=== PATIENT | male | born 1960 | race Caucasian/White ===

== ENCOUNTER 2017-12-26 12:49 | Outpatient (CLI) | payer BC, SELFPAY ==
[2017-12-26 13:09] LABS: Abs Immature Grans 0.03 k/cumm (0.0-0.09); Absolute Basophil Count 0.01 k/cumm (0.0-0.2); Absolute Eosinophil Count 0.53 k/cumm (0.0-0.7); Absolute Lymphocyte Count 0.26 k/cumm (1.2-3.4); Absolute Monocyte Count 0.27 k/cumm (0.11-0.7); Absolute Neutrophil Count 1.59 k/cumm (1.2-6.7); Basophils % 0.4; Eosinophils % 19.7; HCT 41.7 % (40.0-50.0); HGB 14.6 g/dL (13.5-17.5); Immature Grans % 1.1; Lymphocytes % 9.7; Mean Corpuscular Hemoglobin 30.9 pg (27.0-33.0); Mean Corpuscular Volume 88.3 fL (80-95); Neutrophils % 59.1; RBC 4.72 m/cumm (4.50-6.00); RBC Distribution Width 12.4 % (11.8-14.1); White Blood Cell Count 2.69 k/cumm (4.4-10.8)
[2017-12-26 13:36] LABS: ALT 30 U/L (12-78); AST 15 U/L (15-37); Albumin 2.7 g/dL (3.4-5.0); Alkaline Phosphatase 220 U/L (46-116); Anion Gap 9.2 mmol/L (3-11); BUN 27 mg/dL (7-18); Bilirubin, Total 0.5 mg/dL (0.2-1.0); CO2 22.8 mmol/L (21.0-32.0); CREATININE 1.18 mg/dL (0.70-1.30); Calcium 8.3 mg/dL (8.5-10.1); Chloride 94 mmol/L (98-107); Glucose 117 mg/dL (70-100); Sodium 126 mmol/L (136-145); Total Protein 6.8 g/dL (6.4-8.2)
[2017-12-26 14:17] LABS: Platelet Count 35 x1000/uL (130-400)
[2017-12-26 14:19] LABS: Diff Comment Agrees w/ Instrument; RBC Morphology Normal
== END 2017-12-26 13:09 ==
PROVIDERS: PCP Physician Assistant; Visit Provider Nurse Practitioner Adult Health
DX: K76.89 Other specified diseases of liver (principal); K59.00 Constipation, unspecified; R91.8 Other nonspecific abnormal finding of lung field; C34.11 Malignant neoplasm of upper lobe, right bronchus or lung
CPT/HCPCS: 36415; 80053; 85025

== ENCOUNTER 2018-01-10 09:13 | Outpatient (REF) | payer BC, SELFPAY ==
[2018-01-10 09:33] LABS: Abs Immature Grans 0.05 k/cumm (0.0-0.09); Absolute Basophil Count 0.02 k/cumm (0.0-0.2); Absolute Lymphocyte Count 0.43 k/cumm (1.2-3.4); Absolute Monocyte Count 0.81 k/cumm (0.11-0.7); Absolute Neutrophil Count 3.48 k/cumm (1.2-6.7); Basophils % 0.4; HCT 34.3 % (40.0-50.0); HGB 11.4 g/dL (13.5-17.5); Lymphocytes % 8.8; Mean Corp. HGB Concentration 33.2 g/dL (32.0-36.0); Mean Corpuscular Hemoglobin 30.9 pg (27.0-33.0); Mean Platelet Volume 9.6 fL (8.0-11.0); Monocytes % 16.6; Neutrophils % 71.2; Platelet Count 141 x1000/uL (130-400); RBC 3.69 m/cumm (4.50-6.00); RBC Distribution Width 14.4 % (11.8-14.1); White Blood Cell Count 4.89 k/cumm (4.4-10.8)
== END 2018-01-10 09:33 ==
LOC: LBN 09:13
PROVIDERS: PCP Physician Assistant; Visit Provider Nurse Practitioner Adult Health
DX: C34.11 Malignant neoplasm of upper lobe, right bronchus or lung (principal)
CPT/HCPCS: 85025

== ENCOUNTER 2018-01-22 10:25 | Emergency (ER) | payer BC, SELFPAY ==
--- NOTE | 2018-01-22 10:40 | W.ED.GENAD ---
Discharge Plan Disposition Patient Disposition: HOME Condition: Stable Discharge Details Chief Complaint: Cellulitis Clinical Impression: Rash, Thrombocytopenia Primary Care Provider: Serge Walker ED Provider: Lashay Savage Discharge Instructions Instructions: Acute Rash (ED), Thrombocytopenia (ED) Additional Instructions: Please return immediately to the emergency department if you develop any new or worsening symptoms or if you become otherwise concerned. It is extremely important that you make an appointment to be seen by your primary care doctor or your oncologist within the next week in follow-up this visit. It is also extremely important that you arrive at the infusion center here at [facility] tomorrow between 1 and 2 PM for a platelet transfusion. Referrals: Serge Walker [Primary Care Provider] - Discharge Data Discharge Date/Time-TO BE ENTERED AT DEPARTURE: 01/22/18 14:50 Medical Decision Making Dmitry Mills is a 57 y/o man with history of stage IV lung cancer with recent chemotherapy presenting to the emergency department with known rash for the past week, unchanged and thrombus cytopenia at outside hospital last night, here for recheck of some cytopenia. On exam patient is nontoxic appearing and comfortable. He has a normal cardiopulmonary exam. There is confluent purpura of bilateral anterior tibias and +1 nonpitting edema of bilateral lower legs without posterior calf tenderness palpation. DP pulses are intact and symmetric. There is no warmth. Concern for possible DVTs though unlikely, worsening thrombocytopenia. Exam/history not consistent with active bleeding, sepsis, TTP, acute emergent vascular process. Doubt active infection. Plan to hold antibiotics at this time pending blood cultures taken in [place] last night per [facility] plan and appearance of rash, plan to obtain screening labs and bilateral lower extremity ultrasounds. DVT study is negative. platelets 16. I did discuss the patient with his oncologist at [facility], Dr. Guerrier, who agreed with prior assessment by [facility] at that patient should not be treated further with antibiotics and that we should await blood cultures that were taken last night. He did recommend the patient be transfused 1 pack of platelets despite no active bleeding given that he may need procedures in the near future or could continue to drop. He reports that he will see patient in follow-up. He does not believe that from cytopenia is ITP or TTP at this time, and more likely chemotherapy related. Discussed transfusion of platelets with blood bank, who reported that platelets would not be available until 6 or 7:00 tonight. I discussed this with the patient, who stated that he would not stay in the emergency department for length of time. I called the transfusion center, and they are able to see the patient at 1 PM tomorrow to transfuse the platelets. At this time I do not believe that there is significant benefit to obtaining platelets later tonight as opposed to tomorrow afternoon, particularly given that patient is refusing to stay in the emergency department until later tonight. Lengthy discussion with patient regarding return to emergency department precautions and importance of outpatient follow-up with his oncologist and at the transfusion center tomorrow for platelets. He is amenable to the plan. Medical Records Medical records reviewed: Yes I reviewed the patient's medical records. Imaging Data Radiologic Study: Radiologist's impression: US DVT studies neg per radiology by phone Lab Data Lab results reviewed: Yes I reviewed the patient's lab results. HPI General Mode of arrival: ambulatory. Date/Time Provider Initiated Documentation: 01/22/18 10:40. Limitations to Documentation: no limitations. Information obtained by: patient and family. HPI Narrative: Dmitry Mills is a 57 y/o man with stage IV lung cancer with last chemo therapy January 06, 2018 presenting to the emergency department for lab check. Patient reports that he completed a one-week course of Keflex yesterday for rash to bilateral lower legs that developed 1 week ago. Patient reports that he went to [facility] last night for continued rash. Per patient they gave him 2 g of ceftriaxone and p.o. Bactrim. He was found to have platelets of 14, and there is plan for admission for lab recheck in a.m. and possible platelet transfusion. Patient reports to me that he left the emergency department in [facility] because he is very uncomfortable in hospital beds due to chronic back pain is unchanged from baseline. Patient reports that he went to [facility] this morning, and they sent him to emergency department for lab check for thrombocytopenia. Patient denies symptoms at this time other than his ongoing rash. He has no pain, no shortness of breath, no fever, no nausea/vomiting/diarrhea, no cough, no other rash, no lightheadedness, no weakness, no numbness/tingling. Patient does report decreased appetite since beginning chemotherapy which is unchanged for him. He reports that he has been able to eat and drink a small amount of food every day. He denies any bleeding and denies melena/hematochezia. Review of Systems Review of Systems Constitutional: denies fevers, reports fatigue, decreased appetite Eyes: denies eye pain ENT: denies facial pain, dental pain, sore throat Cardiovascular: denies chest pain, edema Respiratory: denies SOB, cough GI: denies abdominal pain, vomiting, diarrhea : denies flank pain MSK: denies back pain, neck pain, arthralgias, myalgias Skin: reports rash Neuro: denies headaches, lightheadedness, weakness [facility] Social History Smoking/Tobacco Use Status: Current every day Exam Narrative Exam Narrative: Constitutional: well and [id number], pleasant, conversing normally HENT: head atraumatic, normocephalic normal inspection, mucous membranes moist Eyes: conjunctiva normal, sclera normal, pupils 3mm b/l Neck: no stridor, normal ROM, trachea midline Chest: normal inspection, port site without edema or overlying skin changes Resp: normal work of breathing, LCTAB Cardio: normal rate, normal rhythm, no murmur appreciated GI: abdomen soft, non-tender, non-distended Back: normal inspection, no rash Skin: warm, dry, normal color, no rash other than as below Neuro: alert, not altered, grossly non-focal, normal tone Ext: +1 non-pitting edema b/l lower legs, anterior tibias with non-blanching rash c/w purpura, no posterior calf TTP Psych: normal mood, normal affect, normal behavior
[2018-01-22 10:41] VITALS: BP 111/69; PULSE 102; RESP 18; TEMP 37.3; O2SAT 98
--- NOTE | 2018-01-22 11:13 | DI.US_ITS ---
SYMPTOM/DIAGNOSIS: BILAT LOWER EXTREMITY RASH AND EDEMA BILATERAL LOWER EXTREMITY VENOUS ULTRASOUND: There is no evidence of right or left leg DVT. Note is made of a 2.7 by 2.1 by 0.7 cm. right groin lymph node which appears anatomically normal. Note is also made of multiple lymph nodes in the left groin, the largest measuring 2.3 by 2.1 by 0.7 cm. These nodes also appearing acoustically normal.
[2018-01-22 11:37] LABS: Abs Immature Grans 0.01 k/cumm (0.0-0.09); Absolute Basophil Count 0.01 k/cumm (0.0-0.2); Absolute Eosinophil Count 0.08 k/cumm (0.0-0.7); Absolute Monocyte Count 0.36 k/cumm (0.11-0.7); Absolute Neutrophil Count 3.32 k/cumm (1.2-6.7); Basophils % 0.2; Eosinophils % 1.9; HCT 30.6 % (40.0-50.0); HGB 10.3 g/dL (13.5-17.5); Immature Grans % 0.2; Lymphocytes % 9.6; Mean Corp. HGB Concentration 33.7 g/dL (32.0-36.0); Mean Corpuscular Hemoglobin 30.9 pg (27.0-33.0); Mean Corpuscular Volume 91.9 fL (80-95); Mean Platelet Volume 12.3 fL (8.0-11.0); Monocytes % 8.6; Neutrophils % 79.5; RBC 3.33 m/cumm (4.50-6.00); RBC Distribution Width 14.1 % (11.8-14.1); White Blood Cell Count 4.18 k/cumm (4.4-10.8)
[2018-01-22 11:49] LABS: ALT 31 U/L (12-78); AST 20 U/L (15-37); Albumin 2.4 g/dL (3.4-5.0); Alkaline Phosphatase 196 U/L (46-116); Anion Gap 9.7 mmol/L (3-11); BUN 6 mg/dL (7-18); Bilirubin, Total 0.4 mg/dL (0.2-1.0); CO2 26.3 mmol/L (21.0-32.0); CREATININE 0.93 mg/dL (0.70-1.30); Calcium 8.1 mg/dL (8.5-10.1); Chloride 98 mmol/L (98-107); Glucose 98 mg/dL (70-100); Potassium 3.8 mmol/L (3.5-5.1); Sodium 134 mmol/L (136-145); Total Protein 7.1 g/dL (6.4-8.2)
[2018-01-22 11:50] LABS: Diff Comment PLT Morph Reviewed; Platelet Count 16 x1000/uL (130-400); RBC Morphology Normal
[2018-01-22 14:48] VITALS: BP 114/67; PULSE 92; RESP 20; TEMP 36.5; O2SAT 97
--- NOTE | 2018-01-22 16:29 | ED.GENADUL_ITS ---
Discharge Plan Disposition Patient Disposition: HOME Condition: Stable Discharge Details Chief Complaint: Cellulitis Clinical Impression: Rash, Thrombocytopenia Primary Care Provider: Serge Walker ED Provider: Lashay Savage Discharge Instructions Instructions: Acute Rash (ED), Thrombocytopenia (ED) Additional Instructions: Please return immediately to the emergency department if you develop any new or worsening symptoms or if you become otherwise concerned. It is extremely important that you make an appointment to be seen by your primary care doctor or your oncologist within the next week in follow-up this visit. It is also extremely important that you arrive at the infusion center here at [facility] tomorrow between 1 and 2 PM for a platelet transfusion. Referrals: Serge Walker [Primary Care Provider] - Discharge Data Discharge Date/Time-TO BE ENTERED AT DEPARTURE: 01/22/18 14:50 Medical Decision Making Dmitry Mills is a 57 y/o man with history of stage IV lung cancer with recent chemotherapy presenting to the emergency department with known rash for the past week, unchanged and thrombus cytopenia at outside hospital last night, here for recheck of some cytopenia. On exam patient is nontoxic appearing and comfortable. He has a normal cardiopulmonary exam. There is confluent purpura of bilateral anterior tibias and +1 nonpitting edema of bilateral lower legs without posterior calf tenderness palpation. DP pulses are intact and symmetric. There is no warmth. Concern for possible DVTs though unlikely, worsening thrombocytopenia. Exam/history not consistent with active bleeding, sepsis, TTP, acute emergent vascular process. Doubt active infection. Plan to hold antibiotics at this time pending blood cultures taken in [place] last night per [facility] plan and appearance of rash, plan to obtain screening labs and bilateral lower extremity ultrasounds. DVT study is negative. platelets 16. I did discuss the patient with his oncologist at [facility], Dr. Guerrier, who agreed with prior assessment by [facility] at that patient should not be treated further with antibiotics and that we should await blood cultures that were taken last night. He did recommend the patient be transfused 1 pack of platelets despite no active bleeding given that he may need procedures in the near future or could continue to drop. He reports that he will see patient in follow-up. He does not believe that from cytopenia is ITP or TTP at this time, and more likely chemotherapy related. Discussed transfusion of platelets with blood bank, who reported that platelets would not be available until 6 or 7:00 tonight. I discussed this with the patient, who stated that he would not stay in the emergency department for length of time. I called the transfusion center, and they are able to see the patient at 1 PM tomorrow to transfuse the platelets. At this time I do not believe that there is significant benefit to obtaining platelets later tonight as opposed to tomorrow afternoon, particularly given that patient is refusing to stay in the emergency department until later tonight. Lengthy discussion with patient regarding return to emergency department precautions and importance of outpatient follow-up with his oncologist and at the transfusion center tomorrow for platelets. He is amenable to the plan. Medical Records Medical records reviewed: Yes I reviewed the patient's medical records. Imaging Data Radiologic Study: Radiologist's impression: US DVT studies neg per radiology by phone Lab Data Lab results reviewed: Yes I reviewed the patient's lab results. HPI General Mode of arrival: ambulatory . Date/Time Provider Initiated Documentation: 01/22/18 10:40 . Limitations to Documentation: no limitations . Information obtained by: patient and family . HPI Narrative: Dmitry Mills is a 57 y/o man with stage IV lung cancer with last chemo therapy January 06, 2018 presenting to the emergency department for lab check. Patient reports that he completed a one-week course of Keflex yesterday for rash to bilateral lower legs that developed 1 week ago. Patient reports that he went to [facility] last night for continued rash. Per patient they gave him 2 g of ceftriaxone and p.o. Bactrim. He was found to have platelets of 14, and there is plan for admission for lab recheck in a.m. and possible platelet transfusion. Patient reports to me that he left the emergency department in [facility] because he is very uncomfortable in hospital beds due to chronic back pain is unchanged from baseline. Patient reports that he went to [facility] this morning, and they sent him to emergency department for lab check for thrombocytopenia. Patient denies symptoms at this time other than his ongoing rash. He has no pain, no shortness of breath, no fever, no nausea/vomiting/diarrhea, no cough, no other rash, no lightheadedness, no weakness, no numbness/tingling. Patient does report decreased appetite since beginning chemotherapy which is unchanged for him. He reports that he has been able to eat and drink a small amount of food every day. He denies any bleeding and denies melena/hematochezia. Review of Systems Review of Systems Constitutional: denies fevers, reports fatigue, decreased appetite Eyes: denies eye pain ENT: denies facial pain, dental pain, sore throat Cardiovascular: denies chest pain, edema Respiratory: denies SOB, cough GI: denies abdominal pain, vomiting, diarrhea : denies flank pain MSK: denies back pain, neck pain, arthralgias, myalgias Skin: reports rash Neuro: denies headaches, lightheadedness, weakness [facility] Social History Smoking/Tobacco Use Status: Current every day Exam Narrative Exam Narrative: Constitutional: well and [id number], pleasant, conversing normally HENT: head atraumatic, normocephalic normal inspection, mucous membranes moist Eyes: conjunctiva normal, sclera normal, pupils 3mm b/l Neck: no stridor, normal ROM, trachea midline Chest: normal inspection, port site without edema or overlying skin changes Resp: normal work of breathing, LCTAB Cardio: normal rate, normal rhythm, no murmur appreciated GI: abdomen soft, non-tender, non-distended Back: normal inspection, no rash Skin: warm, dry, normal color, no rash other than as below Neuro: alert, not altered, grossly non-focal, normal tone Ext: +1 non-pitting edema b/l lower legs, anterior tibias with non-blanching rash c/w purpura, no posterior calf TTP Psych: normal mood, normal affect, normal behavior
== END 2018-01-22 14:50 | disposition home or self-care (01) ==
PROVIDERS: Emergency Provider Student in an Organized Health Care Education/Training Program; PCP Physician Assistant
DX: R21 Rash and other nonspecific skin eruption (principal); D69.59 Other secondary thrombocytopenia; T45.1X5A Adverse effect of antineoplastic and immunosuppressive drugs, initial encounter; Z79.899 Other long term (current) drug therapy; C34.90 Malignant neoplasm of unspecified part of unspecified bronchus or lung
CPT/HCPCS: 36415; 80053; 86900; 86901; 93005; 99285; 85025; 93010; 93970; 99284

== ENCOUNTER 2018-01-23 02:00 | Outpatient (RCR) | payer BC, SELFPAY ==
[2018-01-23 14:00] VITALS: BP 95/65; PULSE 99; RESP 18; TEMP 36.9; O2SAT 100
[2018-01-23 14:25] VITALS: BP 100/62; PULSE 99; RESP 18; TEMP 37
== END 2018-02-05 23:59 | disposition home or self-care (01) ==
LOC: INF 02:00
PROVIDERS: PCP Physician Assistant; Visit Provider Student in an Organized Health Care Education/Training Program
DX: C34.90 Malignant neoplasm of unspecified part of unspecified bronchus or lung (principal); D64.9 Anemia, unspecified
CPT/HCPCS: 36430; 86900; 86901; 86945; 86644; P9035

== ENCOUNTER 2018-02-07 11:04 | Outpatient (REF) | payer BC, SELFPAY ==
[2018-02-07 11:33] LABS: Abs Immature Grans 0.03 k/cumm (0.0-0.09); HCT 28.6 % (40.0-50.0); HGB 9.9 g/dL (13.5-17.5); Mean Corp. HGB Concentration 34.6 g/dL (32.0-36.0); Mean Corpuscular Hemoglobin 30.9 pg (27.0-33.0); Mean Corpuscular Volume 89.4 fL (80-95); Mean Platelet Volume 11.4 fL (8.0-11.0); RBC Distribution Width 16.5 % (11.8-14.1)
[2018-02-07 11:44] LABS: ALT 31 U/L (12-78); AST 19 U/L (15-37); Alkaline Phosphatase 115 U/L (46-116); Anion Gap 11.2 mmol/L (3-11); BUN 16 mg/dL (7-18); Bilirubin, Total 2.9 mg/dL (0.2-1.0); CO2 23.8 mmol/L (21.0-32.0); Calcium 7.9 mg/dL (8.5-10.1); Chloride 96 mmol/L (98-107); Glucose 118 mg/dL (70-100); Sodium 131 mmol/L (136-145); Total Protein 6.1 g/dL (6.4-8.2)
[2018-02-07 12:07] LABS: Potassium 2.8 mmol/L (3.5-5.1)
[2018-02-07 12:08] LABS: White Blood Cell Count 0.55 k/cumm (4.4-10.8)
[2018-02-07 12:09] LABS: Platelet Count 32 x1000/uL (130-400)
[2018-02-07 12:17] LABS: Absolute Neutrophil Count 0.29 k/cumm (1.2-6.7)
[2018-02-07 12:18] LABS: Absolute Eosinophil Count 0.02 k/cumm (0.0-0.7); Absolute Monocyte Count 0.04 k/cumm (0.11-0.7)
[2018-02-07 12:19] LABS: Diff Comment Manual Differential
[2018-02-07 12:20] LABS: Microcytosis 1+
== END 2018-02-07 11:24 ==
LOC: LBN 11:04
PROVIDERS: PCP Physician Assistant; Visit Provider Nurse Practitioner Adult Health
DX: C34.11 Malignant neoplasm of upper lobe, right bronchus or lung (principal)
CPT/HCPCS: 80053; 85025

== ENCOUNTER 2018-02-07 12:37 | Emergency (ER) | payer BC, SELFPAY ==
[2018-02-07] VITALS (25 sets, daily range): BP systolic 96–107; BP diastolic 54–66; PULSE 82–116; RESP 12–25; TEMP 37.1; O2SAT 97–100
[2018-02-07] MEDS: Normal Saline 1,000 ML 1000 ML IV (13:14)
[2018-02-07] MEDS: POTASSIUM CHLORIDE 20 MEQ/100 ML BAG 50 MEQ IVPB (13:15)
--- NOTE | 2018-02-07 13:24 | W.ED.GENAD ---
Discharge Plan Disposition Patient Disposition: AGAINST MEDICAL ADVICE Discharge Details Chief Complaint: Nausea/Vomit/Diar Clinical Impression: Lung cancer, primary, with metastasis from lung to other site, Thrombocytopenia, Acute hypokalemia, Nausea vomiting and diarrhea, Neutropenia Primary Care Provider: Serge Walker ED Provider: Casey Savage Home Meds and New Rx's Prescriptions: No Action prochlorperazine maleate 10 mg Tablet 1 tab PO Q3H RF: 0 ondansetron 8 mg Tablet,Disintegrating 8 mg PO TID PRNRF: 0 fentanyl 100 mcg/hr Patch 72 Hour See Label Instructions .ROUTE .COMPLEX RF: 0 morphine 15 mg Tablet 1 - 2 tab PO Q3H PRN PRNRF: 0 naproxen sodium 220 mg Capsule 1 tab PO DAILY PRNRF: 0 xzdjbphb-ckl-EN-lycopen-lutein [Centrum Silver Men] 300-600-300 mcg Tablet 1 tab PO DAILY RF: 0 prednisone 10 mg Tablet 10 mg PO TID RF: 0 gabapentin 250 mg/5 mL Solution 12 ml PO TID RF: 0 sulfacetamide sodium 10 % Drops 1 drp OPHTHALMIC (EYE) Q3H RF: 0 Discharge Instructions Additional Instructions: Please return to the emergency department at any point for further diagnostic workup and treatment. 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 Labs reviewed from prehospital. Patient appears clinically dehydrated. Plan at this point is to give IV fluid. Labs done just prior to arrival today reveal hypokalemia. I will replete potassium with potassium chloride 20 mEq. Plan is to treat for severe neutropenia with prophylactic antibiotics and admit the patient for continued IV fluids and antiemetics and further diagnostics. Plan for palliative care consult. I discussed treatment plan with patient and family and they declined admission here and would prefer to be transferred to [facility] where he could be in the company of friends and family. I explained that there is no medical necessity to transport the patient to [facility] and that insurance would likely not cover the ambulance cost. They plan to leave AGAINST MEDICAL ADVICE and drive by private vehicle to [facility]. I will contact [facility] to inform them of history and family desires. -- Patient tolerated potassium infusion. Dark stool noted - heme positive. Patient leaving [facility]a and driving to [facility]. I spoke with Dr. Padilla at [facility]. HPI General Mode of arrival: ambulatory. Date/Time Provider Initiated Documentation: 02/07/18 12:49. Limitations to Documentation: no limitations. Information obtained by: patient. 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 Patient not tolerating oral intake. Symptoms are severe. No modifiers. He does have some associated epigastric abdominal pain. Patient received normal saline, solumedrol 100mg, and Compazine 20mg at [facility]. Related Data Home Medications Medication Instructions Recorded Confirmed fentanyl See Label Instructions .ROUTE 02/07/18 02/07/18 .COMPLEX gabapentin 12 ml PO TID 02/07/18 02/07/18 morphine 1 - 2 tab PO Q3H PRN PRN 02/07/18 02/07/18 nsuwzbbn-acz-VW-lycopen-lutein 1 tab PO DAILY 02/07/18 02/07/18 [Centrum Silver Men] naproxen sodium 1 tab PO DAILY PRN 02/07/18 02/07/18 ondansetron 8 mg PO TID PRN 02/07/18 02/07/18 prednisone 10 mg PO TID 02/07/18 02/07/18 prochlorperazine maleate 1 tab PO Q3H 02/07/18 02/07/18 sulfacetamide sodium 1 drp OPHTHALMIC (EYE) Q3H 02/07/18 02/07/18 Allergies Allergy/AdvReac Type Severity Reaction Status Date / Time adhesive Allergy Intermediate Skin Rash Unverified 02/07/18 12:57 General Stated Complaint: GenMedical MANOJ: 2 Review of Systems Review of Systems All systems reviewed & are unremarkable except as noted in HPI and below Constitutional Reports poor appetite, Reports weakness and Reports weight loss Gastrointestinal Reports diarrhea, Reports nausea and Reports vomiting Neurologic Reports weakness PFSH Medical History Lung cancer, primary, with metastasis from lung to other site (Acute) Social History Smoking/Tobacco Use Status: Current every day Exam Const General: cooperative and no acute distress HENMT Head: normocephalic and atraumatic Mouth: mucous membranes dry Eyes Conjunctivae: normal conjunctivae Sclera: normal sclerae EOM: EOM intact bilaterally Neck Neck: trachea midline and supple Resp Auscultation: clear to auscultation bilaterally, no rales, no rhonchi and no wheezes Cardio Jugular venous pressure: no JVD Rate: regular rate and not tachycardic Rhythm: regular rhythm GI Palpation: soft, not firm, no guarding, no masses, not rigid and tender in the epigastrum Skin General skin exam: jaundice Neuro General: alert, awake, oriented x3 and tone normal Extrem General: edema Laterality: bilateral Psych Mental Status: mental status grossly normal Course Vital Signs Temperature 37.1 C 02/07/18 12:51 Pulse 104 H 02/07/18 12:51 Respiratory Rate 25 H 02/07/18 12:51 Blood Pressure 96/54 L 02/07/18 12:51 Pulse Oximetry 98 02/07/18 12:51 Temperature 37.1 C 02/07/18 12:51 Temperature Source Temporal Artery Scan 02/07/18 12:51 Pulse 104 H 02/07/18 12:51 Respiratory Rate 25 H 02/07/18 12:51 Respiratory Effort 02/07/18 13:00 Blood Pressure 96/54 L 02/07/18 12:51 Blood Pressure Position Sitting 02/07/18 12:51 Pulse Oximetry 98 02/07/18 12:51 Oxygen Delivery Method Room Air 02/07/18 12:51 Oxygen Flow Rate 0 02/07/18 12:51 Pain Level 3 02/07/18 12:51
--- NOTE | 2018-02-07 13:27 | ED.GENADUL_ITS ---
Discharge Plan Disposition Patient Disposition: AGAINST MEDICAL ADVICE Discharge Details Chief Complaint: Nausea/Vomit/Diar Clinical Impression: Lung cancer, primary, with metastasis from lung to other site, Thrombocytopenia , Acute hypokalemia, Nausea vomiting and diarrhea, Neutropenia Primary Care Provider: Serge Walker ED Provider: Casey Savage Home Meds and New Rx's Prescriptions: No Action prochlorperazine maleate 10 mg Tablet 1 tab PO Q3H RF: 0 ondansetron 8 mg Tablet,Disintegrating 8 mg PO TID PRNRF: 0 fentanyl 100 mcg/hr Patch 72 Hour See Label Instructions .ROUTE .COMPLEX RF: 0 morphine 15 mg Tablet 1 - 2 tab PO Q3H PRN PRNRF: 0 naproxen sodium 220 mg Capsule 1 tab PO DAILY PRNRF: 0 pantzmog-cwn-XH-lycopen-lutein [Centrum Silver Men] 300-600-300 mcg Tablet 1 tab PO DAILY RF: 0 prednisone 10 mg Tablet 10 mg PO TID RF: 0 gabapentin 250 mg/5 mL Solution 12 ml PO TID RF: 0 sulfacetamide sodium 10 % Drops 1 drp OPHTHALMIC (EYE) Q3H RF: 0 Discharge Instructions Additional Instructions: Please return to the emergency department at any point for further diagnostic workup and treatment. 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 Labs reviewed from prehospital. Patient appears clinically dehydrated. Plan at this point is to give IV fluid. Labs done just prior to arrival today reveal hypokalemia. I will replete potassium with potassium chloride 20 mEq. Plan is to treat for severe neutropenia with prophylactic antibiotics and admit the patient for continued IV fluids and antiemetics and further diagnostics. Plan for palliative care consult. I discussed treatment plan with patient and family and they declined admission here and would prefer to be transferred to [facility] where he could be in the company of friends and family. I explained that there is no medical necessity to transport the patient to [facility] and that insurance would likely not cover the ambulance cost. They plan to leave AGAINST MEDICAL ADVICE and drive by private vehicle to [facility]. I will contact [facility] to inform them of history and family desires. -- Patient tolerated potassium infusion. Dark stool noted - heme positive. Patient leaving [facility] and driving to [facility]. I spoke with Dr. Padilla at [facility]. HPI General Mode of arrival: ambulatory . Date/Time Provider Initiated Documentation: 02/07/18 12:49 . Limitations to Documentation: no limitations . Information obtained by: patient . 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 Patient not tolerating oral intake. Symptoms are severe. No modifiers. He does have some associated epigastric abdominal pain. Patient received normal saline, solumedrol 100mg, and Compazine 20mg at [facility]. Related Data Home Medications Medication Instructions Recorded Confirmed fentanyl See Label Instructions .ROUTE 02/07/18 02/07/18 .COMPLEX gabapentin 12 ml PO TID 02/07/18 02/07/18 morphine 1 - 2 tab PO Q3H PRN PRN 02/07/18 02/07/18 vojpzbhn-pst-AS-lycopen-lutein 1 tab PO DAILY 02/07/18 02/07/18 [Centrum Silver Men] naproxen sodium 1 tab PO DAILY PRN 02/07/18 02/07/18 ondansetron 8 mg PO TID PRN 02/07/18 02/07/18 prednisone 10 mg PO TID 02/07/18 02/07/18 prochlorperazine maleate 1 tab PO Q3H 02/07/18 02/07/18 sulfacetamide sodium 1 drp OPHTHALMIC (EYE) Q3H 02/07/18 02/07/18 Allergies Allergy/AdvReac Type Severity Reaction Status Date / Time adhesive Allergy Intermediate Skin Rash Unverified 02/07/18 12:57 General Stated Complaint: GenMedical MANOJ: 2 Review of Systems Review of Systems All systems reviewed & are unremarkable except as noted in HPI and below Constitutional Reports poor appetite, Reports weakness and Reports weight loss Gastrointestinal Reports diarrhea, Reports nausea and Reports vomiting Neurologic Reports weakness PFSH Medical History Lung cancer, primary, with metastasis from lung to other site (Acute) Social History Smoking/Tobacco Use Status: Current every day Exam Const General: cooperative and no acute distress HENMT Head: normocephalic and atraumatic Mouth: mucous membranes dry Eyes Conjunctivae: normal conjunctivae Sclera: normal sclerae EOM: EOM intact bilaterally Neck Neck: trachea midline and supple Resp Auscultation: clear to auscultation bilaterally, no rales, no rhonchi and no wheezes Cardio Jugular venous pressure: no JVD Rate: regular rate and not tachycardic Rhythm: regular rhythm GI Palpation: soft, not firm, no guarding, no masses, not rigid and tender in the epigastrum Skin General skin exam: jaundice Neuro General: alert, awake, oriented x3 and tone normal Extrem General: edema Laterality: bilateral Psych Mental Status: mental status grossly normal Course Vital Signs Temperature 37.1 C 02/07/18 12:51 Pulse 104 H 02/07/18 12:51 Respiratory Rate 25 H 02/07/18 12:51 Blood Pressure 96/54 L 02/07/18 12:51 Pulse Oximetry 98 02/07/18 12:51 Temperature 37.1 C 02/07/18 12:51 Temperature Source Temporal Artery Scan 02/07/18 12:51 Pulse 104 H 02/07/18 12:51 Respiratory Rate 25 H 02/07/18 12:51 Respiratory Effort 02/07/18 13:00 Blood Pressure 96/54 L 02/07/18 12:51 Blood Pressure Position Sitting 02/07/18 12:51 Pulse Oximetry 98 02/07/18 12:51 Oxygen Delivery Method Room Air 02/07/18 12:51 Oxygen Flow Rate 0 02/07/18 12:51 Pain Level 3 02/07/18 12:51
--- NOTE | 2018-02-07 14:03 | PDOC.ERCMPRO ---
Care Management Progress Note 02/07-Dr. Joe Savage requested assistance with a Palliative referral. Diagnosis: Stage 4 lung cancer not responding to treatment. Referral faxed to Palliative Care.
== END 2018-02-07 15:22 | disposition left against medical advice (07) ==
PROVIDERS: Emergency Provider Student in an Organized Health Care Education/Training Program; PCP Physician Assistant
DX: D69.6 Thrombocytopenia, unspecified (principal); D70.9 Neutropenia, unspecified; R11.2 Nausea with vomiting, unspecified; R19.7 Diarrhea, unspecified; E87.6 Hypokalemia; C34.11 Malignant neoplasm of upper lobe, right bronchus or lung; C78.7 Secondary malignant neoplasm of liver and intrahepatic bile duct; Z53.29 Procedure and treatment not carried out because of patient's decision for other reasons
CPT/HCPCS: 99284; J3480

== ENCOUNTER 2018-02-20 10:24 | Outpatient (RCR) | payer BC, SELFPAY ==
[2018-02-20] MEDS: Normal Saline Flush 10 ML SYR IVP (09:20)
[2018-02-20 09:52] LABS: Abs Immature Grans 0.12 k/cumm (0.0-0.09); Absolute Basophil Count 0.01 k/cumm (0.0-0.2); Absolute Eosinophil Count 0.08 k/cumm (0.0-0.7); Absolute Lymphocyte Count 0.76 k/cumm (1.2-3.4); Absolute Monocyte Count 0.74 k/cumm (0.11-0.7); Absolute Neutrophil Count 9.05 k/cumm (1.2-6.7); Basophils % 0.1; Eosinophils % 0.7; HGB 9.2 g/dL (13.5-17.5); Immature Grans % 1.1; Lymphocytes % 7.1; Mean Corp. HGB Concentration 32.9 g/dL (32.0-36.0); Mean Corpuscular Hemoglobin 31.6 pg (27.0-33.0); Mean Corpuscular Volume 96.2 fL (80-95); Mean Platelet Volume 10.2 fL (8.0-11.0); Monocytes % 6.9; Neutrophils % 84.1; Platelet Count 184 x1000/uL (130-400); RBC 2.91 m/cumm (4.50-6.00); RBC Distribution Width 21.8 % (11.8-14.1); White Blood Cell Count 10.76 k/cumm (4.4-10.8)
[2018-02-20 10:11] LABS: ALT 39 U/L (12-78); AST 25 U/L (15-37); Albumin 2.2 g/dL (3.4-5.0); Alkaline Phosphatase 178 U/L (46-116); Anion Gap 8.8 mmol/L (3-11); BUN 5 mg/dL (7-18); Bilirubin, Total 0.4 mg/dL (0.2-1.0); CO2 29.2 mmol/L (21.0-32.0); CREATININE 0.65 mg/dL (0.70-1.30); Calcium 7.8 mg/dL (8.5-10.1); Chloride 99 mmol/L (98-107); Glucose 109 mg/dL (70-100); Sodium 137 mmol/L (136-145)
[2018-02-20 10:19] LABS: Potassium 2.6 mmol/L (3.5-5.1)
[2018-02-20 21:21] LABS: FREE T4 1.07 ng/dL (0.76-1.46); TSH 3.38 uIU/mL (0.358-3.74)
== END 2018-03-07 23:59 | disposition home or self-care (01) ==
LOC: INF 10:24
PROVIDERS: PCP Physician Assistant; Visit Provider Nurse Practitioner Adult Health
DX: C34.11 Malignant neoplasm of upper lobe, right bronchus or lung (principal); Z45.2 Encounter for adjustment and management of vascular access device
CPT/HCPCS: 36591; 80053; 84439; 84443; 85025

== ENCOUNTER 2018-04-03 11:33 | Outpatient (RCR) | payer BC, SELFPAY ==
[2018-04-03 12:07] LABS: Abs Immature Grans 0.01 k/cumm (0.0-0.09); Absolute Basophil Count 0.01 k/cumm (0.0-0.2); Absolute Eosinophil Count 0.06 k/cumm (0.0-0.7); Absolute Lymphocyte Count 0.76 k/cumm (1.2-3.4); Absolute Monocyte Count 0.83 k/cumm (0.11-0.7); Absolute Neutrophil Count 3.06 k/cumm (1.2-6.7); Basophils % 0.2; Eosinophils % 1.3; HGB 11.6 g/dL (13.5-17.5); Immature Grans % 0.2; Lymphocytes % 16.1; Mean Corp. HGB Concentration 33.1 g/dL (32.0-36.0); Mean Corpuscular Hemoglobin 35.3 pg (27.0-33.0); Mean Corpuscular Volume 106.4 fL (80-95); Monocytes % 17.5; Neutrophils % 64.7; Platelet Count 130 x1000/uL (130-400); RBC 3.29 m/cumm (4.50-6.00); RBC Distribution Width 13.8 % (11.8-14.1); White Blood Cell Count 4.73 k/cumm (4.4-10.8)
[2018-04-03] MEDS: Normal Saline Flush 10 ML SYR IVP (12:08)
[2018-04-03 12:18] LABS: ALT 19 U/L (12-78); AST 20 U/L (15-37); Albumin 2.2 g/dL (3.4-5.0); Alkaline Phosphatase 183 U/L (46-116); Anion Gap 7.8 mmol/L (3-11); BUN 6 mg/dL (7-18); Bilirubin, Total 0.3 mg/dL (0.2-1.0); CO2 26.2 mmol/L (21.0-32.0); CREATININE 0.61 mg/dL (0.70-1.30); Calcium 7.7 mg/dL (8.5-10.1); Chloride 98 mmol/L (98-107); Glucose 93 mg/dL (70-100); Potassium 3.4 mmol/L (3.5-5.1); Sodium 132 mmol/L (136-145); Total Protein 6.6 g/dL (6.4-8.2)
[2018-04-03 12:24] LABS: Diff Comment RBC Morph Reviewed; Hypochromasia 1+; Macrocytosis 3+; Polychromasia Present
[2018-04-03 15:37] LABS: FREE T4 1.27 ng/dL (0.76-1.46); TSH 2.48 uIU/mL (0.358-3.74)
== END 2018-04-07 23:59 | disposition home or self-care (01) ==
LOC: INF 11:33
PROVIDERS: PCP Physician Assistant; Visit Provider Nurse Practitioner Adult Health
DX: C34.11 Malignant neoplasm of upper lobe, right bronchus or lung (principal); Z45.2 Encounter for adjustment and management of vascular access device
CPT/HCPCS: 36591; 80053; 84439; 84443; 85025

== ENCOUNTER 2018-04-24 09:33 | Outpatient (RCR) | payer BC, SELFPAY ==
[2018-04-24 10:03] LABS: Abs Immature Grans 0.03 k/cumm (0.0-0.09); Absolute Basophil Count 0.01 k/cumm (0.0-0.2); Absolute Eosinophil Count 0.03 k/cumm (0.0-0.7); Absolute Lymphocyte Count 0.92 k/cumm (1.2-3.4); Absolute Monocyte Count 0.83 k/cumm (0.11-0.7); Absolute Neutrophil Count 6.42 k/cumm (1.2-6.7); Basophils % 0.1; Eosinophils % 0.4; HCT 35.9 % (40.0-50.0); HGB 13.1 g/dL (13.5-17.5); Immature Grans % 0.4; Lymphocytes % 11.2; Mean Corp. HGB Concentration 36.5 g/dL (32.0-36.0); Mean Corpuscular Hemoglobin 34.9 pg (27.0-33.0); Mean Corpuscular Volume 95.7 fL (80-95); Mean Platelet Volume 10.5 fL (8.0-11.0); Monocytes % 10.1; Neutrophils % 77.8; Platelet Count 120 x1000/uL (130-400); RBC 3.75 m/cumm (4.50-6.00); RBC Distribution Width 14.3 % (11.8-14.1); White Blood Cell Count 8.24 k/cumm (4.4-10.8)
[2018-04-24] MEDS: Normal Saline Flush 10 ML SYR IVP (10:20)
[2018-04-24 10:26] LABS: ALT 32 U/L (12-78); AST 36 U/L (15-37); Albumin 1.8 g/dL (3.4-5.0); Alkaline Phosphatase 289 U/L (46-116); Anion Gap 8.3 mmol/L (3-11); BUN 9 mg/dL (7-18); Bilirubin, Total 0.5 mg/dL (0.2-1.0); CO2 23.7 mmol/L (21.0-32.0); Calcium 7.3 mg/dL (8.5-10.1); Chloride 99 mmol/L (98-107); Glucose 95 mg/dL (70-100); Potassium 3.7 mmol/L (3.5-5.1); Sodium 131 mmol/L (136-145); Total Protein 6.3 g/dL (6.4-8.2)
[2018-04-24 11:50] LABS: T4 7.9 ug/dL (4.5-12.5); TSH 4.22 uIU/mL (0.358-3.74)
== END 2018-05-08 23:59 | disposition home or self-care (01) ==
LOC: INF 09:33
PROVIDERS: PCP Physician Assistant; Visit Provider Nurse Practitioner Adult Health
DX: C34.11 Malignant neoplasm of upper lobe, right bronchus or lung (principal); Z45.2 Encounter for adjustment and management of vascular access device
CPT/HCPCS: 36591; 80053; 84436; 84443; 85025